=== PATIENT | female | born 1940 | race Caucasian/White ===

== ENCOUNTER → 2020-10-26 | Outpatient (CLI) | payer SELFPAY ==
[2020-10-26 19:38] LABS: Creatinine Urine 56.7 mg/dL (27.00-270.00); Protein, Urine Quantitative 7.1 mg/dL (0.0-11.9)
[2020-10-26 19:40] LABS: Microalbumin, Urine Quant. 40.5 mg/L (0.000-20.000)
== END | disposition home or self-care (01) ==
LOC: LAB 13:19 → LAB SHORT 13:19
PROVIDERS: Internal Medicine Nephrology
DX: N18.30 Chronic kidney disease, stage 3 unspecified (principal); D63.1 Anemia in chronic kidney disease; N25.81 Secondary hyperparathyroidism of renal origin; E55.9 Vitamin D deficiency, unspecified; E78.00 Pure hypercholesterolemia, unspecified; D50.9 Iron deficiency anemia, unspecified; D51.8 Other vitamin B12 deficiency anemias; D52.8 Other folate deficiency anemias; R76.9 Abnormal immunological finding in serum, unspecified; R94.5 Abnormal results of liver function studies; R94.6 Abnormal results of thyroid function studies
CPT/HCPCS: 81050; 82043; 82570; 84156

== ENCOUNTER 2021-04-30 13:21 | Inpatient (IN) | payer MEDICARE, OTHER ==
[~2021-04-30] VITALS: Ht 157.5 cm; Wt 63.4 kg
[2021-04-30] MEDS ORDERED: ATORVASTATIN CA20 MG PO (13:36)
[2021-04-30] MEDS ORDERED: Amoxicillin500 MG PO (13:36)
[2021-04-30] MEDS ORDERED: CALCITRIOL0.25 MC4 PO (13:36)
[2021-04-30] MEDS ORDERED: AMLODIPINE BESY10 MG PO (13:36)
[2021-04-30] MEDS ORDERED: TRAZ50 PO (13:37)
[2021-04-30 14:38] LABS: Hematocrit 31.9 % (33.0-51.0); Hemoglobin 10.6 g/dL (11.5-16.0); Mean Corpuscular HGB 31.3 pg (26.0-34.0); Mean Corpuscular HGB Conc 33.2 g/dL (31.5-36.5); Mean Corpuscular Volume 94 fL (80-100); Mean Platelet Volume 10.2 fL (9.1-12.4); Platelet Count 229 K/mm3 (150-400); RDW Standard Deviation 48.2 fL (35.1-46.3); Red Blood Cell Count 3.39 M/mm3 (3.80-5.20); White Blood Cell Count 14.27 K/mm3 (4.00-11.30)
[2021-04-30 14:59] LABS: BAND PERCENT MAN 15 % (0-8); BASOPHILS PERCENT MAN 0 % (0-2); EOSINOPHILS PERCENT MAN 0 % (0-6); LYMPHOCYTES % ATYPICAL MANUAL 1 % (0-0); LYMPHOCYTES ABSOLUTE MAN 0.71 K/mm3 (0.84-5.20); LYMPHOCYTES PERCENT MAN 4 % (21-46); MONOCYTES ABSOLUTE MAN 0.71 K/mm3 (0.16-1.47); MONOCYTES PERCENT MAN 5 % (4-13); NEUTROPHILS ABSOLUTE MAN 12.84 K/mm3 (1.96-9.15); SEG NEUTROPHILS PERCENT MAN 75 % (41-73); TOTAL CELLS COUNTED 100
[2021-04-30 15:00] LABS: Albumin, Blood 2.5 g/dL (3.4-5.0); Albumin/Globulin Ratio 0.8 (0.8-1.8); Bilirubin, Total 0.9 mg/dL (0.1-1.0); Bun/Creatinine Ratio 22.4 (12.0-20.0); Calcium, Blood 7.1 mg/dL (8.5-10.1); Creatinine, Blood 1.96 mg/dL (0.40-1.00); Total Protein, Blood 5.5 g/dL (6.4-8.2); Troponin I 0.025 ng/mL (0.000-0.040)
[2021-04-30 15:16] LABS: Influenza A, PCR NEGATIVE (NEGATIVE); Influenza B, PCR NEGATIVE (NEGATIVE); Resp Syncytial Virus, PCR NEGATIVE (NEGATIVE); SARS-Cov-2 (COVID-19) PCR, MMC NEGATIVE (NEGATIVE)
[2021-05-01 05:39] LABS: BASOPHILS ABSOLUTE AUTO 0.02 K/mm3 (0.00-0.23); BASOPHILS PERCENT AUTO 0 % (0-2); EOSINOPHILS PERCENT AUTO 0 % (0-6); Hematocrit 28.9 % (33.0-51.0); Hemoglobin 9.4 g/dL (11.5-16.0); IMMATURE GRAN ABSOLUTE AUTO 0.02 K/mm3 (0.00-0.10); IMMATURE GRAN PERCENT AUTO 0 % (0-1); LYMPHOCYTES ABSOLUTE AUTO 0.84 K/mm3 (0.84-5.20); LYMPHOCYTES PERCENT AUTO 9 % (21-46); MONOCYTES ABSOLUTE AUTO 0.68 K/mm3 (0.16-1.47); MONOCYTES PERCENT AUTO 7 % (4-13); Mean Corpuscular HGB 31.1 pg (26.0-34.0); Mean Corpuscular HGB Conc 32.5 g/dL (31.5-36.5); Mean Corpuscular Volume 96 fL (80-100); Mean Platelet Volume 10.3 fL (9.1-12.4); NEUTROPHILS ABSOLUTE AUTO 7.92 K/mm3 (1.96-9.15); NEUTROPHILS PERCENT AUTO 84 % (41-73); Platelet Count 200 K/mm3 (150-400); RDW Standard Deviation 49.5 fL (35.1-46.3); Red Blood Cell Count 3.02 M/mm3 (3.80-5.20); White Blood Cell Count 9.48 K/mm3 (4.00-11.30)
--- NOTE | 2021-05-01 06:11 | NUR ---
SHIFT SUMMARY: PT IS ALERT AND ORIENTED. PT IS CALM AND COOPERATIVE WITH CARE. PT CALLS APPROPRIATELY. PT ON 4 L O2 KEEPING SATS > 90%. PT REPORTS SOB ON EXERTION. PT REPORTS AWAD, GAVE PRN TYLENOL. PT DENIES N/V. PT RESTING IN BED THROUGHOUT THE NIGHT. WILL CONTINUE TO MONITOR.
[2021-05-01 06:24] LABS: Albumin, Blood 2.1 g/dL (3.4-5.0); Albumin/Globulin Ratio 0.7 (0.8-1.8); Bilirubin, Total 0.6 mg/dL (0.1-1.0); Bun/Creatinine Ratio 26.1 (12.0-20.0); Creatinine, Blood 1.76 mg/dL (0.40-1.00); Globulin, Blood 2.9 g/dL (2.2-4.0); Magnesium, Blood 2.6 mg/dL (1.6-2.4); Phosphorus, Blood 3.4 mg/dL (2.5-4.9); Potassium, Blood 3.7 mmol/L (3.5-5.5)
[2021-05-02 05:49] LABS: Albumin, Blood 2.1 g/dL (3.4-5.0); Anion Gap 12 mmol/L (6-16); Blood Urea Nitrogen 39 mg/dL (8-24); Bun/Creatinine Ratio 26.7 (12.0-20.0); CO2, Blood 19 mmol/L (21-32); Calcium, Blood 6.9 mg/dL (8.5-10.1); Chloride, Blood 110 mmol/L (98-108); Creatinine, Blood 1.46 mg/dL (0.40-1.00); Glomerular Filtration Rate 34 (60-); Glucose, Blood 88 mg/dL (70-99); Phosphorus, Blood 2.9 mg/dL (2.5-4.9); Potassium, Blood 3.6 mmol/L (3.5-5.5); Sodium, Blood 141 mmol/L (136-145)
--- NOTE | 2021-05-02 06:01 | NUR ---
SHIFT SUMMARY AOX4. ADMITTED FOR PNEUMONIA, RECIEVING IV ANTIBIOTICS. SPO2 DROPPED TO 76% ON 3L c AMBULATION THIS AM, INCREASED O2 TO 4L & SPO2 @90%, PT CAN TELL WHEN O2 DROPPING c ACTIVITY. REST OF VITALS STABLE. TELE NSR c PAC @78. CALL LIGHT IN REACH. WCTM.
[2021-05-02] MEDS ORDERED: METOPROLOL SUCC25 MG PO (17:22)
--- NOTE | 2021-05-02 18:17 | NUR ---
SHIFT SUMMARY PT A&O X4 AND IN PLEASENT MOOD T/O SHIFT. 4-5 L O2 VIA NC DEPENDING ON EXERTION, MAINTAINING >90 ON 4 L @ REST. PT SHOWERED SBA AND LINEN CHANGED. TOLERATING PO INTAKE WELL. SLIGHT CRACKLES R LUNG. STEADY GAIT W/ AMBULATION. WORKED W/ PT DURING THIS SHIFT. VSS.
--- NOTE | 2021-05-03 04:37 | NUR ---
SHIFT SUMMARY ADMITTED FOR PNEUMONIA/SEPSIS. FULL CODE. PLAN IS FOR DC HOME W/SPOUSE WHEN SHE IS STABLE. TELEMETRY: NSR W/PVC'S @ 86 BPM. SHE IS ON 5 LPM O2 WHEN SHE AMBULATES, 4 LPM O2 @ REST. IV ANTIB RX ARE SCHEDULED. THERE ARE CONCERNS THAT THE PNEUMONIA MAY BE CAUSED BY ASPIRATION. SHE IS A STANDBY ASSIST - BRP
[2021-05-03 06:40] LABS: Albumin, Blood 1.9 g/dL (3.4-5.0); Anion Gap 7 mmol/L (6-16); Blood Urea Nitrogen 28 mg/dL (8-24); Bun/Creatinine Ratio 18.5 (12.0-20.0); CO2, Blood 23 mmol/L (21-32); Chloride, Blood 112 mmol/L (98-108); Creatinine, Blood 1.51 mg/dL (0.40-1.00); Glomerular Filtration Rate 33 (60-); Glucose, Blood 95 mg/dL (70-99); Phosphorus, Blood 2.6 mg/dL (2.5-4.9); Potassium, Blood 3.6 mmol/L (3.5-5.5); Sodium, Blood 142 mmol/L (136-145)
--- NOTE | 2021-05-03 10:31 | NUR ---
PT PROVIDED WITH INCENTIVE SPIROMETER, EDUCATION PROVIDED. PT DEMONSTRATED CORRECT USE.
--- NOTE | 2021-05-03 16:56 | NUR ---
SHIFT SUMMARY NO ACUTE EVENTS THIS SHIFT. PT IS ALERT AND ORIENTED, ABLE TO CALL APPROPRIATELY. ON 4 L VIA NASAL CANNULA, HAS INTERMITTENT COUGH. PT PROVIDED WITH INCENTIVE SPIROMETER, EDUCATION PROVIDED, PT HAS BEEN USING THROUGHOUT SHIFT. AT START OF SHIFT PT STATED THAT SHE HAD PAIN WITH FULL INSPIRATION, BY END OF SHIFT PATIENT ENDORSED SATISFACTION THAT SHE WAS FEELING BETTER AND NO LONGER FELT PAINFUL WITH FULL INSPIRATION. PT WAS HYPERTENSIVE AT START OF SHIFT, GIVEN MEDICATIONS PER EMAR. PT WAS ABLE TO AMBULATE TO THE BATHROOM WITH SBA AND GAITBELT FOR SAFETY. PATIENT DID HAVE A TEMPERATURE, GIVEN TYLENOL PER EMAR, MD AWARE, IMPROVED THROUGH SHIFT. FLUIDS RUNNING PER EMAR.
--- NOTE | 2021-05-04 04:11 | NUR ---
SHIFT SUMMARY ADMITTED FOR PNEUMONIA/SEPSIS. FULL CODE. PLAN IS FOR DC HOME W/HER SPOUSE WHEN STABLE. TELEMETRY: NSR @ 75 BPM. LR INFUSING @ 75 ML/HR. IV ANTIB RX ARE SCHEDULED. SHE IS A STANDBY ASSIST - BRP. SHE IS ON 4 LPM O2 AT REST, 5 LPM O2 W/ACTIVITY. SHE IS A STANDBY ASSIST - BRP.
[2021-05-04 05:31] LABS: BASOPHILS ABSOLUTE AUTO 0.02 K/mm3 (0.00-0.23); BASOPHILS PERCENT AUTO 0 % (0-2); EOSINOPHILS ABSOLUTE AUTO 0.07 K/mm3 (0.00-0.68); EOSINOPHILS PERCENT AUTO 1 % (0-6); Hematocrit 29.6 % (33.0-51.0); Hemoglobin 9.4 g/dL (11.5-16.0); IMMATURE GRAN ABSOLUTE AUTO 0.11 K/mm3 (0.00-0.10); IMMATURE GRAN PERCENT AUTO 1 % (0-1); LYMPHOCYTES ABSOLUTE AUTO 1.19 K/mm3 (0.84-5.20); LYMPHOCYTES PERCENT AUTO 14 % (21-46); MONOCYTES ABSOLUTE AUTO 1.33 K/mm3 (0.16-1.47); MONOCYTES PERCENT AUTO 15 % (4-13); Mean Corpuscular HGB 30.5 pg (26.0-34.0); Mean Corpuscular HGB Conc 31.8 g/dL (31.5-36.5); Mean Corpuscular Volume 96 fL (80-100); Mean Platelet Volume 10.2 fL (9.1-12.4); NEUTROPHILS ABSOLUTE AUTO 5.91 K/mm3 (1.96-9.15); NEUTROPHILS PERCENT AUTO 69 % (41-73); Platelet Count 308 K/mm3 (150-400); RDW Coefficient Variation 14.5 % (11.7-14.2); RDW Standard Deviation 51.4 fL (35.1-46.3); Red Blood Cell Count 3.08 M/mm3 (3.80-5.20); White Blood Cell Count 8.63 K/mm3 (4.00-11.30)
[2021-05-04 06:04] LABS: Albumin, Blood 2.3 g/dL (3.4-5.0); Anion Gap 10 mmol/L (6-16); Blood Urea Nitrogen 23 mg/dL (8-24); Bun/Creatinine Ratio 17.2 (12.0-20.0); CO2, Blood 23 mmol/L (21-32); Calcium, Blood 7.4 mg/dL (8.5-10.1); Chloride, Blood 109 mmol/L (98-108); Creatinine, Blood 1.34 mg/dL (0.40-1.00); Glomerular Filtration Rate 38 (60-); Glucose, Blood 111 mg/dL (70-99); Phosphorus, Blood 2.5 mg/dL (2.5-4.9); Potassium, Blood 3.5 mmol/L (3.5-5.5); Sodium, Blood 142 mmol/L (136-145)
[2021-05-04 08:38] LABS: Influenza A, PCR NEGATIVE (NEGATIVE); Influenza B, PCR NEGATIVE (NEGATIVE); Resp Syncytial Virus, PCR NEGATIVE (NEGATIVE); SARS-Cov-2 (COVID-19) PCR, MMC NEGATIVE (NEGATIVE)
--- NOTE | 2021-05-04 17:12 | NUR ---
PT AOX4 AND COOPERATIVE OF CARE. PT HAD RT RAISE O2 FROM 5L TO 7L AT START OF SHIFT. DR WALDRON WAS NOTIFIED AND CHEST XRAY ORDERED. COVID TEST AND PT WILL HAVE REPEAT 05/05/21. PT WORKED WELL WITH PT AND IS A STANDBY TO RESTROOM NEEDING HELP WITH IV PUMP.
[2021-05-04 21:16] LABS: Source, Urine Clean Catch
[2021-05-04 21:21] LABS: Appearance, Urine Clear (Clear); Bilirubin, Urine Neg (Neg); Blood, Urine Neg (Neg); Color, Urine Yellow (P-Yellow); Glucose Qualitative, Urine Neg (Neg); Ketones, Urine Neg (Neg); Leukocyte Esterase, Urine Neg (Neg); Nitrite, Urine Neg (Neg); Protein, Urine 1+ (Neg); Specific Gravity, Urine 1.015 (1.003-1.022); Urobilinogen, Urine NORM (Normal)
--- NOTE | 2021-05-05 05:40 | NUR ---
SHIFT SUMMARY 80 YR F ADMITTED ON 04/30/21 FOR PNEUMONIA. FULL CODE. SHE IS CURRENTLY ON 8 L O2 WITH SATS AVERAGING AROUND 90. LUNGS ARE CRACKLY AND SHE HAS A WET COUGH. BILATER LOWER EXTREMITIY EDEMA. IV WAS REDONE AND IS STILL IN LEFT FOREARM. PT IS FRIENDLY AND COOPERATIVE. AMBULATES INDEPENDANTLY. WILL DISCHARGE HOME WITH HER .
[2021-05-05 06:01] LABS: BASOPHILS ABSOLUTE AUTO 0.03 K/mm3 (0.00-0.23); BASOPHILS PERCENT AUTO 0 % (0-2); EOSINOPHILS ABSOLUTE AUTO 0.14 K/mm3 (0.00-0.68); EOSINOPHILS PERCENT AUTO 2 % (0-6); Hematocrit 25.9 % (33.0-51.0); Hemoglobin 8.2 g/dL (11.5-16.0); IMMATURE GRAN ABSOLUTE AUTO 0.13 K/mm3 (0.00-0.10); IMMATURE GRAN PERCENT AUTO 1 % (0-1); LYMPHOCYTES PERCENT AUTO 17 % (21-46); MONOCYTES ABSOLUTE AUTO 1.25 K/mm3 (0.16-1.47); MONOCYTES PERCENT AUTO 13 % (4-13); Mean Corpuscular HGB 30.1 pg (26.0-34.0); Mean Corpuscular HGB Conc 31.7 g/dL (31.5-36.5); Mean Corpuscular Volume 95 fL (80-100); Mean Platelet Volume 10.3 fL (9.1-12.4); NEUTROPHILS ABSOLUTE AUTO 6.18 K/mm3 (1.96-9.15); NEUTROPHILS PERCENT AUTO 66 % (41-73); Platelet Count 375 K/mm3 (150-400); RDW Coefficient Variation 14.6 % (11.7-14.2); RDW Standard Deviation 51.3 fL (35.1-46.3); Red Blood Cell Count 2.72 M/mm3 (3.80-5.20); White Blood Cell Count 9.33 K/mm3 (4.00-11.30)
[2021-05-05 06:14] LABS: Albumin, Blood 2.2 g/dL (3.4-5.0); Anion Gap 9 mmol/L (6-16); Blood Urea Nitrogen 20 mg/dL (8-24); Bun/Creatinine Ratio 15.4 (12.0-20.0); CO2, Blood 23 mmol/L (21-32); Calcium, Blood 7.4 mg/dL (8.5-10.1); Chloride, Blood 110 mmol/L (98-108); Glomerular Filtration Rate 39 (60-); Glucose, Blood 92 mg/dL (70-99); Phosphorus, Blood 2.6 mg/dL (2.5-4.9); Potassium, Blood 3.9 mmol/L (3.5-5.5); Sodium, Blood 142 mmol/L (136-145)
[2021-05-05 08:51] LABS: Influenza A, PCR NEGATIVE (NEGATIVE); Influenza B, PCR NEGATIVE (NEGATIVE); Resp Syncytial Virus, PCR NEGATIVE (NEGATIVE); SARS-Cov-2 (COVID-19) PCR, MMC NEGATIVE (NEGATIVE)
--- NOTE | 2021-05-05 17:23 | NUR ---
SHIFT SUMMARY PATIENT MEDICATED X1 WITH TYLENOL FOR HEADACHE. PATIENT DENIES NAUSEA. PATIENT REPORTS SOB WITH ACTIVITY. PATIENT DID REPORT SOB AT REST THIS MORNING. RT GAVE BREATHING TREATMENT WITH GOOD EFFECT. PATIENT TITRATED TO 6L VIA HIGH FLOW. PATIENT MAINTAINING SATS ABOVE 93%. PATIENT IS A SBA IN THE ROOM. PATIENT ABLE TO TOLERATE TAKING A SHOWER TODAY. PATIENT IS EATING AND DRINKING WELL. PATIENT IS PLEASANT AND COOPERATIVE WITH CARE.
[2021-05-06 05:02] LABS: BASOPHILS ABSOLUTE AUTO 0.01 K/mm3 (0.00-0.23); BASOPHILS PERCENT AUTO 0 % (0-2); EOSINOPHILS ABSOLUTE AUTO 0.24 K/mm3 (0.00-0.68); EOSINOPHILS PERCENT AUTO 3 % (0-6); Hematocrit 28.3 % (33.0-51.0); Hemoglobin 8.8 g/dL (11.5-16.0); IMMATURE GRAN ABSOLUTE AUTO 0.07 K/mm3 (0.00-0.10); IMMATURE GRAN PERCENT AUTO 1 % (0-1); LYMPHOCYTES ABSOLUTE AUTO 1.53 K/mm3 (0.84-5.20); LYMPHOCYTES PERCENT AUTO 21 % (21-46); MONOCYTES ABSOLUTE AUTO 0.89 K/mm3 (0.16-1.47); MONOCYTES PERCENT AUTO 12 % (4-13); Mean Corpuscular HGB Conc 31.1 g/dL (31.5-36.5); Mean Corpuscular Volume 97 fL (80-100); Mean Platelet Volume 10.1 fL (9.1-12.4); NEUTROPHILS ABSOLUTE AUTO 4.63 K/mm3 (1.96-9.15); NEUTROPHILS PERCENT AUTO 63 % (41-73); Platelet Count 383 K/mm3 (150-400); RDW Coefficient Variation 14.7 % (11.7-14.2); RDW Standard Deviation 52.2 fL (35.1-46.3); Red Blood Cell Count 2.93 M/mm3 (3.80-5.20); White Blood Cell Count 7.37 K/mm3 (4.00-11.30)
--- NOTE | 2021-05-06 05:16 | NUR ---
SHIFT SUMMARY 80 YR F ADMITTED ON 04/30/21 FOR PNEUMONIA. FULL CODE. PT HAD TITRATED DOWN FROM 8 TO 6 L O2 IN THE LAST 24 HOURS. RT HAS GIVEN SEVERAL BREATHING TX WHICH SEEMED TO HAVE HELPED A LOT/ CURRENT SATS ARE IN THE MID 90'S. PT IS INDEPENDANT IN THE ROOM AND AMBULATES TO THE BATHROOM WITH NO ASSISTANCE. DISCHARGE PLANS ARE TO GO HOME WITH HER .
[2021-05-06 06:06] LABS: Albumin, Blood 2.1 g/dL (3.4-5.0); Anion Gap 6 mmol/L (6-16); Blood Urea Nitrogen 21 mg/dL (8-24); Bun/Creatinine Ratio 16.7 (12.0-20.0); CO2, Blood 25 mmol/L (21-32); Calcium, Blood 7.7 mg/dL (8.5-10.1); Chloride, Blood 111 mmol/L (98-108); Creatinine, Blood 1.26 mg/dL (0.40-1.00); Glomerular Filtration Rate 41 (60-); Glucose, Blood 111 mg/dL (70-99); Phosphorus, Blood 3.2 mg/dL (2.5-4.9); Potassium, Blood 4.1 mmol/L (3.5-5.5); Sodium, Blood 142 mmol/L (136-145)
--- NOTE | 2021-05-06 16:26 | NUR ---
SHIFT SUMMARY PATIENT MEDICATED X1 WITH TYLENOL, WITH GOOD EFFECT, FOR NECK PAIN. PATIENT DENIES NAUSEA. PATIENT REPORTS SHORTNESS OF BREATH WITH ACTIVITY. PATIENT ON 6L HIGH FLOW. PATIENT SATURATING ABOVE 90%. ATTEMPTED TO TITRATE TO 5L, BUT PATIENT DID NOT SUSTAIN SATS ABOVE 90%. PATIENT IS A SBA TO THE BATHROOM. PATIENT IS EATING AND DRINKING WELL. PATIENT IS PLEASANT AND COOPERAATIVE WITH CARE.
--- NOTE | 2021-05-07 04:29 | NUR ---
SHIFT SUMMARY PT CONTINUES TO HAVE SHORTNESS OF BREATH WITH EXERTION. PT REPORTS FEELING LIKE THIS IS SLIGHTLY WORSE THIS EVENING. PT REMAINS ON 6 L VIA HFNC. O2 SATS IN THE LOW TO MID 90'S. DESATS TO THE LOW TO MID 80'S WITH EXERTION. RECOVERS WELL WITH REST. PT REPORTS NAGGING NONPRODUCTIVE COUGH. NEW ORDERS FOR ROBITUSSIN THIS EVENING. PT ALSO COMPLAINING OF PAIN IN NECK/R SHOULDER. TYLENOL GIVEN AND HEATING PAD PROVIDED. PT REPORTED IMPROVEMENT. SLEPT OFF AND ON WHEN NOT GETTING UP TO VOID. VITAL SIGNS STABLE. WILL CONTINUE TO MONITOR.
[2021-05-07 07:52] LABS: BASOPHILS ABSOLUTE AUTO 0.02 K/mm3 (0.00-0.23); BASOPHILS PERCENT AUTO 0 % (0-2); EOSINOPHILS ABSOLUTE AUTO 0.16 K/mm3 (0.00-0.68); EOSINOPHILS PERCENT AUTO 3 % (0-6); Hematocrit 28.1 % (33.0-51.0); Hemoglobin 8.9 g/dL (11.5-16.0); IMMATURE GRAN ABSOLUTE AUTO 0.05 K/mm3 (0.00-0.10); IMMATURE GRAN PERCENT AUTO 1 % (0-1); LYMPHOCYTES ABSOLUTE AUTO 1.33 K/mm3 (0.84-5.20); LYMPHOCYTES PERCENT AUTO 20 % (21-46); MONOCYTES ABSOLUTE AUTO 0.75 K/mm3 (0.16-1.47); MONOCYTES PERCENT AUTO 12 % (4-13); Mean Corpuscular HGB 30.7 pg (26.0-34.0); Mean Corpuscular HGB Conc 31.7 g/dL (31.5-36.5); Mean Corpuscular Volume 97 fL (80-100); Mean Platelet Volume 10.1 fL (9.1-12.4); NEUTROPHILS ABSOLUTE AUTO 4.22 K/mm3 (1.96-9.15); NEUTROPHILS PERCENT AUTO 65 % (41-73); Platelet Count 392 K/mm3 (150-400); RDW Coefficient Variation 14.8 % (11.7-14.2); RDW Standard Deviation 52.6 fL (35.1-46.3); White Blood Cell Count 6.53 K/mm3 (4.00-11.30)
[2021-05-07 08:12] LABS: Albumin, Blood 2.2 g/dL (3.4-5.0); Anion Gap 7 mmol/L (6-16); Blood Urea Nitrogen 17 mg/dL (8-24); Bun/Creatinine Ratio 14.8 (12.0-20.0); CO2, Blood 24 mmol/L (21-32); Calcium, Blood 7.4 mg/dL (8.5-10.1); Chloride, Blood 111 mmol/L (98-108); Creatinine, Blood 1.15 mg/dL (0.40-1.00); Glomerular Filtration Rate 45 (60-); Glucose, Blood 92 mg/dL (70-99); Phosphorus, Blood 2.9 mg/dL (2.5-4.9); Potassium, Blood 4.3 mmol/L (3.5-5.5); Sodium, Blood 142 mmol/L (136-145)
--- NOTE | 2021-05-07 18:06 | NUR ---
PT REMAINS ON 6L HFNC, SATS STILL IN LOW TO MID 90'S, DESATTING INTO THE 80'S WITH EXERTION, RECOVERS WELL. USING IS T/O THE SHIFT, NO ACUTE CHANGES NOTED THIS SHIFT, WILL CONTINUE TO MONITOR AND REPORT TO ONCOMING RN
--- NOTE | 2021-05-08 03:34 | NUR ---
SHIFT SUMMARY PT AOX4. NO ACUTE CHANGES OVERNIGHT. PT ON 6L HFNC. SATURATING ON 90-94% AT REST. DESATS WHEN AMBULATING TO 79% BUT DOES NOT APPEAR TO BE DISTRESSED. ENC PT DO DEEP BREATHS AND USE FLUTTER VALVE AND I/S. PT ALSO REPORTS R SIDE NECK AND R SHOUDLER PAIN. PAIN MANAGED WITH KPAD AND TYLENOL. TOLERATING PO INTAKE. DENIES N/V. VSS. USE CALL LIGHT APPROPRIATELY. IV ABX ADMINISTERED. BREATHING TX RECIEVED FROM RT. CALL LIGHT WITHIN REACH. WILL PROVIDE REPORT TO ONCOMING NURSE.
[2021-05-08 05:32] LABS: BASOPHILS ABSOLUTE AUTO 0.02 K/mm3 (0.00-0.23); BASOPHILS PERCENT AUTO 0 % (0-2); EOSINOPHILS ABSOLUTE AUTO 0.08 K/mm3 (0.00-0.68); EOSINOPHILS PERCENT AUTO 1 % (0-6); Hematocrit 27.2 % (33.0-51.0); Hemoglobin 8.4 g/dL (11.5-16.0); IMMATURE GRAN ABSOLUTE AUTO 0.04 K/mm3 (0.00-0.10); IMMATURE GRAN PERCENT AUTO 1 % (0-1); LYMPHOCYTES ABSOLUTE AUTO 0.88 K/mm3 (0.84-5.20); LYMPHOCYTES PERCENT AUTO 15 % (21-46); MONOCYTES ABSOLUTE AUTO 0.65 K/mm3 (0.16-1.47); MONOCYTES PERCENT AUTO 11 % (4-13); Mean Corpuscular HGB 30.1 pg (26.0-34.0); Mean Corpuscular HGB Conc 30.9 g/dL (31.5-36.5); Mean Corpuscular Volume 98 fL (80-100); NEUTROPHILS ABSOLUTE AUTO 4.17 K/mm3 (1.96-9.15); NEUTROPHILS PERCENT AUTO 71 % (41-73); Platelet Count 428 K/mm3 (150-400); RDW Coefficient Variation 14.9 % (11.7-14.2); RDW Standard Deviation 53.7 fL (35.1-46.3); Red Blood Cell Count 2.79 M/mm3 (3.80-5.20); White Blood Cell Count 5.84 K/mm3 (4.00-11.30)
[2021-05-08 05:56] LABS: Albumin, Blood 1.9 g/dL (3.4-5.0); Anion Gap 8 mmol/L (6-16); Blood Urea Nitrogen 17 mg/dL (8-24); Bun/Creatinine Ratio 12.5 (12.0-20.0); CO2, Blood 25 mmol/L (21-32); Calcium, Blood 7.5 mg/dL (8.5-10.1); Chloride, Blood 110 mmol/L (98-108); Creatinine, Blood 1.36 mg/dL (0.40-1.00); Glomerular Filtration Rate 37 (60-); Glucose, Blood 91 mg/dL (70-99); Phosphorus, Blood 3.3 mg/dL (2.5-4.9); Potassium, Blood 4.8 mmol/L (3.5-5.5); Sodium, Blood 143 mmol/L (136-145)
--- NOTE | 2021-05-08 18:21 | NUR ---
MAINTAINING SATS IN THE 90'S ON 6L HFNC AT REST, WILL DESAT INTO THE 80'S WITH EXERTION, RECOVERS WELL. NO VISIBLE SIGNS OF RESP DISTRESS. PT SAYS SHE IS FEELING BETTER TODAY AND IS HOPING TO GO HOME SOON. NO ACUTE CHANGES NOTED THIS SHIFT, WILL CONTINUE TO MONITOR AND REPORT TO THE ONCOMING RN.
[2021-05-09 04:47] LABS: BASOPHILS ABSOLUTE AUTO 0.03 K/mm3 (0.00-0.23); BASOPHILS PERCENT AUTO 1 % (0-2); EOSINOPHILS ABSOLUTE AUTO 0.07 K/mm3 (0.00-0.68); EOSINOPHILS PERCENT AUTO 1 % (0-6); Hematocrit 31.5 % (33.0-51.0); Hemoglobin 9.9 g/dL (11.5-16.0); IMMATURE GRAN ABSOLUTE AUTO 0.07 K/mm3 (0.00-0.10); IMMATURE GRAN PERCENT AUTO 1 % (0-1); LYMPHOCYTES ABSOLUTE AUTO 0.89 K/mm3 (0.84-5.20); LYMPHOCYTES PERCENT AUTO 14 % (21-46); MONOCYTES ABSOLUTE AUTO 1.19 K/mm3 (0.16-1.47); MONOCYTES PERCENT AUTO 19 % (4-13); Mean Corpuscular HGB 30.2 pg (26.0-34.0); Mean Corpuscular HGB Conc 31.4 g/dL (31.5-36.5); Mean Corpuscular Volume 96 fL (80-100); Mean Platelet Volume 9.8 fL (9.1-12.4); NEUTROPHILS ABSOLUTE AUTO 4.18 K/mm3 (1.96-9.15); NEUTROPHILS PERCENT AUTO 65 % (41-73); Platelet Count 549 K/mm3 (150-400); RDW Coefficient Variation 14.9 % (11.7-14.2); RDW Standard Deviation 52.4 fL (35.1-46.3); Red Blood Cell Count 3.28 M/mm3 (3.80-5.20); White Blood Cell Count 6.43 K/mm3 (4.00-11.30)
[2021-05-09 05:24] LABS: Albumin, Blood 2.6 g/dL (3.4-5.0); Anion Gap 7 mmol/L (6-16); Blood Urea Nitrogen 18 mg/dL (8-24); Bun/Creatinine Ratio 14.5 (12.0-20.0); CO2, Blood 25 mmol/L (21-32); Calcium, Blood 8.3 mg/dL (8.5-10.1); Chloride, Blood 108 mmol/L (98-108); Creatinine, Blood 1.24 mg/dL (0.40-1.00); Glomerular Filtration Rate 41 (60-); Glucose, Blood 101 mg/dL (70-99); Phosphorus, Blood 3.3 mg/dL (2.5-4.9); Potassium, Blood 4.4 mmol/L (3.5-5.5); Sodium, Blood 140 mmol/L (136-145)
--- NOTE | 2021-05-09 06:20 | NUR ---
SHIFT SUMMARY NO ACUTE CHANGES TO PT STATUS. PT ON CONTINUOUS BIOX IN ROOM. 6L O2. DESATS WHEN SHE GETS UP TO USE RESTROOM. INDEPENDENT IN THE ROOM. PT MEDICATED FOR R SHOULDER PAIN TWICE PER EMAR. CALL LIGHT WITHIN REACH.
--- NOTE | 2021-05-09 18:05 | NUR ---
SHIFT SUMMARY PT HAD EPISODE OF LOW O2 SATS AT FIRST OF SHIFT WITH O2 INCREEASED TO 8L/M FOR A COUPLE HOURS. DROPPED BACK TO 6L/M BY HIGH FLOW O2 APPROX 1015. SHOWER TAKEN, P.T. WORKED WITH PT AND SATS REMAINED ABOVE 90% THROUGH REMAINDER OF DDAY WITH SHORT DROPS WITH ACTIVITY OR MISREADS. DENIES RESP DISTRESS THROUGH DAY AND REPORTS FEELING PRETTY GOOD.
--- NOTE | 2021-05-10 03:51 | NUR ---
SHIFT SUMMARY NO ACUTE CHANGES TO PT CONDITION AT THIS TIME. PT CONTINUES ON 6 L HIGH FLOW NC. SATS ARE IN MID 90'S. PT CONTINUES TO DESATURATE WHEN GETTING UP TO THE BATHROOM. PT INDEPENDENT IN ROOM. CALL LIGHT WITHIN REACH. WILL CONTINUE TO MONITOR.
--- NOTE | 2021-05-10 18:00 | NUR ---
Patient was alert and orient. Her affect was pleasant and mood was congruent. She worked with PT earlier in the day and her 02 sats remained at 95% at 6LPM. Her 0xygen was reduced to 3LPM and eventually increased back to 4LPM this evening. She walked around the room and went to bathroom as needed. Her oxygen did not desaturate at that time. Patient sat in the chair for at minimum 2 hours. She had a dry cough and did recv prn Robitussin this shift. No complaints of pain, no request for pain meds. Patient is back in bed and appeared to be in no distress.
--- NOTE | 2021-05-11 05:13 | NUR ---
SHIFT SUMMARY NO ACUTE CHANGES TO PT CONDITION AT THIS TIME. PT NOW ON 4L O2 WITH OXYGEN SATS IN THE LOWER 90'S. PT CONTINUES TO DESAT TO LOW 80'S UPON EXERTION. INDEPENDENT IN ROOM. CONTINUES ON ANTIBIOTICS. CALL LIGHT WITHIN REACH. WILL CONTINUE TO MONITOR. PT ON CONTINUOUS BIOX IN HER ROOM.
--- NOTE | 2021-05-11 17:46 | NUR ---
Patient was alert and orient, her affect was pleasant and mood was congruent. Patient continued to express that she wanted to go home. The provider stated that this patient needed 3 more days of IV ABX BID but will try follow up on getting her to infusion clinic so that she could go home. Patient also had 02 home evaluation and looks as if she will be going home with 6L of 02. Patient was cooperative with her meds and tx plan. No complaints of pain.
--- NOTE | 2021-05-12 06:16 | NUR ---
SHIFT SUMMARY: PATIENT IS A&OX4, LOW GRADE TEMP. OBSERVED @ 100.1. TYLENOL WAS GIVEN, RECHECK WAS 100.0. PATIENT WAS ON 4L NC AT START OF SHIFT WITH A SAT OF 92%. WHILE SLEEPING PATIENT DESATED DOWN TO 86% ON 4L. 02 INCREASED TO 6L NC, SAT 90-91%. UP TO THE BATHROOM WITH SBA AND A STAEDY GAIT.
[2021-05-12 08:53] LABS: BASOPHILS ABSOLUTE AUTO 0.01 K/mm3 (0.00-0.23); BASOPHILS PERCENT AUTO 0 % (0-2); EOSINOPHILS ABSOLUTE AUTO 0.01 K/mm3 (0.00-0.68); EOSINOPHILS PERCENT AUTO 0 % (0-6); Hematocrit 30.6 % (33.0-51.0); Hemoglobin 9.4 g/dL (11.5-16.0); IMMATURE GRAN ABSOLUTE AUTO 0.02 K/mm3 (0.00-0.10); IMMATURE GRAN PERCENT AUTO 1 % (0-1); LYMPHOCYTES ABSOLUTE AUTO 1.38 K/mm3 (0.84-5.20); LYMPHOCYTES PERCENT AUTO 37 % (21-46); MONOCYTES ABSOLUTE AUTO 0.74 K/mm3 (0.16-1.47); MONOCYTES PERCENT AUTO 20 % (4-13); Mean Corpuscular HGB 29.1 pg (26.0-34.0); Mean Corpuscular HGB Conc 30.7 g/dL (31.5-36.5); Mean Corpuscular Volume 95 fL (80-100); Mean Platelet Volume 9.6 fL (9.1-12.4); NEUTROPHILS ABSOLUTE AUTO 1.61 K/mm3 (1.96-9.15); NEUTROPHILS PERCENT AUTO 43 % (41-73); Platelet Count 599 K/mm3 (150-400); RDW Coefficient Variation 14.7 % (11.7-14.2); Red Blood Cell Count 3.23 M/mm3 (3.80-5.20); White Blood Cell Count 3.77 K/mm3 (4.00-11.30)
--- NOTE | 2021-05-12 15:42 | NUR ---
SHIFT SUMMARY PT SLEEPING AT START OF SHIFT. RT IN TO GIVE ROUTINE AM TX. PT'S O2 RATE INCREASED TO 5L BY RT. PT'S BIOX AFTER TX 94-95%, DR GAN LATER IN TO SEE PT. O2 DECREASED BACK TO 3L WITH BIOX 91-92%. PT ENCOURAGED TO USE INS AND FLUTTER VALVE, Q1 HR; REQUIRES OCCASSIONAL REMINDERS TO USE AT ALL. PT ASSISTED UP TO BTHRM WITH SBA AND RETURNED TO SIT IN CHAIR AT BS FOR BREAKFAST. PT LATER BACK TO BED. PT TO D/C TO HOME ON FRIDAY AFTER A COUPLE MORE DAYS OF IV ABX. NO C/O, DENIED FURTHER NEEDS AT THIS TIME. CALL LT IN REACH.
--- NOTE | 2021-05-13 04:16 | NUR ---
SHIFT SUMMARY: PATIENT STARTED THE SHIFT ON 3L HIGH FLOW NC. BY 1999 PATIENT WAS PLACED ON 15L VIA OXIMIZER. PATIENT DID NOT FEEL SOB AT ANY TIME. MULTIPLE 02 DELIVERY EQUIPMENT CHANGES THROUGH THE SHIFT. NEEDING A NON REBREATHER AT ONE POINT TO MAINTAIN SATS ABOVE 90% DR HERNANDEZ WAS NOTIFIED OF RESPIRATORY STATUS CHANGES AND CXR IS ORDERED FOR THE AM. PATIENT IS NOW ON 11L VIA HIGH FLOW TUBBING, 02 SAT IS 94%. PATIENT REPORTS LEFT HEARING AIDE IS MISSING. BLAST SETTER IS UNABLE TO LOCATE. ASSEMBLY LINE BRAZER AND AIDE WERE ALSO MADE AWARE
--- NOTE | 2021-05-13 16:09 | NUR ---
SHIFT SUMMARY PER NOC SHIFT REPORT, PT'S O2 INCREASED TO 11L VIA HIGH FLOW O2 DURING THE NIGHT. TRAVELING R/T HAD EQUIPMENT PROBLEMS. PT'S O2 DECREASED TO 6L AT START OF DAY SHIFT THIS AM, WITH PT GOING DOWN FOR F/U CXR. UPON RETURN TO , O2 DECREASED TO 4L. PT HAS CONTINUED TO REMAIN WNL'S ALL DAY, WITH BIOX AT 92%. NO C/O SOB. NO S/SX OF DISTRESS NOTED OR REPORTED. PT HAS BEEN ENCOURAGED TO USE INS AND FLUTTER VALVE THRU OUT THE DAY. PT DOES NOT USE ON HER OWN, BUT WILL USE THEM WHEN REMINED TO DO SO. UP TO CHAIR FOR MEALS, OTHERWISE LIKES TO STAY IN BED AND SLEEP. OTHER HEARING AID FOUND IN BED WITH PT, WHEN GETTING UP TO W/C FOR REPLENISHMENT BUYER. PT DENIES FURTHER NEEDS AT THIS TIME. CALL LT IN REACH.
--- NOTE | 2021-05-14 05:24 | NUR ---
SHIFT SUMMARY: RESPIRATORY STATUS IS IMPROVED. PATIENT IS NOW ON 4L NC HIGH FLOW 02 MAINTAINING SATS BETWEEN 88-91%. LOOSE PRODUCTIVE COUGH. SPUTUM IS CLEAR AND THIN. USING IS AND FLUTTER WITH ENCOURAGEMENT. DESATURATION IS OBSERVED WITH ACTIVITY, 02 IS INCREASED TO 5L WHEN AMBULATING. LOW GRADE TEMPS ARE OBSERVED, PATIENT ENJOYS WARM BLANKETS AND THIS COULD VERY WELL BE ENVIRONMENTALLY INDUCED. RPORTED RIGHT HIP PAIN, TYLENOL WAS EFFECTIVE FOR PAIN CONTROL.
[2021-05-14] MEDS ORDERED: Q-Tussin100 MG/5 M PO (16:30)
[2021-05-14] MEDS ORDERED: IPRAT-ALBUT 0.5-3 ML INH (16:31)
[2021-05-14] MEDS ORDERED: VISBIOME 112.51 EACH PO (16:32)
[2021-05-14] MEDS ORDERED: LEVOFLOXACIN750 MG PO (16:32)
--- NOTE | 2021-05-14 17:36 | NUR ---
DISCHARGE SUMMARY A/OX4, VSS, TOLERATING PO, AMBULATING c MINIMAL ASSISTANCE, 6L O2 VIA NC, DISCUSSED DISCHARGE INSTRUCTIONS WITH THE PT INCLUDING MEDICATIONS AND FOLLOW UP APPOINTMENTS AND CONTACT INFORMATION, DISCUSSED O2 USE AT HOME, PT HAD NO QUESTIONS, NO IV ACCESS IN PLACE, PT ESCORTED OUT WITH ALL PERSONAL POSSESSIONS IN STABLE CONDITION.
== END 2021-05-14 17:33 | disposition home health service (06) | DRG 871 ==
LOC: ER 13:21 → ERHOLD 16:45 → MEDS 16:45
PROVIDERS: Family Medicine; Student in an Organized Health Care Education/Training Program; ADMIT Internal Medicine
PROC: 5A0935A Assistance with Respiratory Ventilation, Less than 24 Consecutive Hours, High Flow/Velocity Cannula (ICD-10-PCS; principal; 2021-05-11)
DX: A40.3 Sepsis due to Streptococcus pneumoniae (principal); J96.01 Acute respiratory failure with hypoxia; R65.20 Severe sepsis without septic shock; J13 Pneumonia due to Streptococcus pneumoniae; N17.9 Acute kidney failure, unspecified; I31.3 Pericardial effusion (noninflammatory); J91.8 Pleural effusion in other conditions classified elsewhere; E78.5 Hyperlipidemia, unspecified; M81.0 Age-related osteoporosis without current pathological fracture; I12.9 Hypertensive chronic kidney disease with stage 1 through stage 4 chronic kidney disease, or unspecified chronic kidney disease; Z88.1 Allergy status to other antibiotic agents; N18.9 Chronic kidney disease, unspecified; G47.00 Insomnia, unspecified; N18.32 Chronic kidney disease, stage 3b; Z20.822 Contact with and (suspected) exposure to COVID-19; Z53.29 Procedure and treatment not carried out because of patient's decision for other reasons
CPT/HCPCS: 0241U; 36415; 71045; 71046; 80053; 80069; 83605; 83735; 83880; 84100; 84484; 85025; 87040; 87186; 92610; 93005; 93010; 93306; 94640; 94760; 94761; 94762; 96365; 96367; 97110; 97116; 97162; 97165; 97530; 97535; 99285-25; A9270; C9113; J0295; J0456; J1644; J7050; J7120

== ENCOUNTER → 2021-04-30 | Outpatient (CLI) | payer MEDICARE, OTHER ==
[~2021-04-30] MED LIST: AMLODIPINE BESY10 MG PO; ATORVASTATIN CA20 MG PO; Amoxicillin500 MG PO; CALCITRIOL0.25 MC4 PO; METOPROLOL SUCC25 MG PO; TRAZ50 PO
== END | disposition home or self-care (01) ==
LOC: LAB SHORT 12:59
DX: G47.34 Idiopathic sleep related nonobstructive alveolar hypoventilation (principal)
CPT/HCPCS: 84484

== ENCOUNTER 2021-05-16 17:27 | Inpatient (IN) | payer MEDICARE, OTHER ==
[~2021-05-16] VITALS: Ht 157.5 cm; Wt 63.1 kg
[~2021-05-16 17:27] MED LIST changes: +IPRAT-ALBUT 0.5-3 ML INH; +LEVOFLOXACIN750 MG PO; +Q-Tussin100 MG/5 M PO; +VISBIOME 112.51 EACH PO
[2021-05-16 18:02] LABS: BASOPHILS ABSOLUTE AUTO 0.02 K/mm3 (0.00-0.23); BASOPHILS PERCENT AUTO 0 % (0-2); EOSINOPHILS PERCENT AUTO 0 % (0-6); Hematocrit 28.2 % (33.0-51.0); Hemoglobin 9.1 g/dL (11.5-16.0); IMMATURE GRAN ABSOLUTE AUTO 0.08 K/mm3 (0.00-0.10); IMMATURE GRAN PERCENT AUTO 2 % (0-1); LYMPHOCYTES ABSOLUTE AUTO 1.06 K/mm3 (0.84-5.20); LYMPHOCYTES PERCENT AUTO 21 % (21-46); MONOCYTES ABSOLUTE AUTO 0.85 K/mm3 (0.16-1.47); MONOCYTES PERCENT AUTO 17 % (4-13); Mean Corpuscular HGB 29.4 pg (26.0-34.0); Mean Corpuscular HGB Conc 32.3 g/dL (31.5-36.5); Mean Corpuscular Volume 91 fL (80-100); Mean Platelet Volume 9.6 fL (9.1-12.4); NEUTROPHILS ABSOLUTE AUTO 3.13 K/mm3 (1.96-9.15); NEUTROPHILS PERCENT AUTO 61 % (41-73); Platelet Count 573 K/mm3 (150-400); RDW Coefficient Variation 14.8 % (11.7-14.2); RDW Standard Deviation 49.8 fL (35.1-46.3); Red Blood Cell Count 3.09 M/mm3 (3.80-5.20); White Blood Cell Count 5.14 K/mm3 (4.00-11.30)
[2021-05-16 18:20] LABS: Albumin, Blood 2.3 g/dL (3.4-5.0); Albumin/Globulin Ratio 0.6 (0.8-1.8); Bilirubin, Total 0.3 mg/dL (0.1-1.0); Bun/Creatinine Ratio 11.4 (12.0-20.0); Calcium, Blood 7.9 mg/dL (8.5-10.1); Creatinine, Blood 1.67 mg/dL (0.40-1.00); Globulin, Blood 3.8 g/dL (2.2-4.0); Potassium, Blood 3.9 mmol/L (3.5-5.5); Total Protein, Blood 6.1 g/dL (6.4-8.2); Troponin I 0.028 ng/mL (0.000-0.040)
[2021-05-16 19:02] LABS: Base Excess Venous 0.3 mmol/L; Bicarbonate Venous 24.6 mmol/L (24.0-30.0); PCO2 Venous 42.6 mmHg (38-42); pH Blood Venous 7.38 (7.34-7.37)
[2021-05-16 19:57] LABS: Influenza A, PCR NEGATIVE (NEGATIVE); Influenza B, PCR NEGATIVE (NEGATIVE); Resp Syncytial Virus, PCR NEGATIVE (NEGATIVE)
[2021-05-16 19:58] LABS: SARS-Cov-2 (COVID-19) PCR, MMC POSITIVE (NEGATIVE)
[2021-05-16 21:01] LABS: C-REACTIVE PROTEIN, EXT RANGE 8.83 mg/dL (0.000-0.300)
[2021-05-17 03:50] LABS: BASOPHILS ABSOLUTE AUTO 0.01 K/mm3 (0.00-0.23); BASOPHILS PERCENT AUTO 0 % (0-2); EOSINOPHILS PERCENT AUTO 0 % (0-6); Hemoglobin 8.9 g/dL (11.5-16.0); IMMATURE GRAN PERCENT AUTO 2 % (0-1); LYMPHOCYTES ABSOLUTE AUTO 1.08 K/mm3 (0.84-5.20); LYMPHOCYTES PERCENT AUTO 26 % (21-46); MONOCYTES ABSOLUTE AUTO 0.68 K/mm3 (0.16-1.47); MONOCYTES PERCENT AUTO 17 % (4-13); Mean Corpuscular HGB Conc 30.7 g/dL (31.5-36.5); Mean Corpuscular Volume 95 fL (80-100); Mean Platelet Volume 9.7 fL (9.1-12.4); NEUTROPHILS ABSOLUTE AUTO 2.24 K/mm3 (1.96-9.15); NEUTROPHILS PERCENT AUTO 55 % (41-73); Platelet Count 492 K/mm3 (150-400); RDW Standard Deviation 51.9 fL (35.1-46.3); Red Blood Cell Count 3.07 M/mm3 (3.80-5.20); White Blood Cell Count 4.11 K/mm3 (4.00-11.30)
[2021-05-17 03:53] LABS: Source, Urine Clean Catch
[2021-05-17 04:02] LABS: Bilirubin, Urine Neg (Neg); Blood, Urine Neg (Neg); Glucose Qualitative, Urine Neg (Neg); Ketones, Urine Neg (Neg); Leukocyte Esterase, Urine Neg (Neg); Nitrite, Urine Neg (Neg); Protein, Urine 1+ (Neg); Specific Gravity, Urine 1.015 (1.003-1.022); Urobilinogen, Urine NORM (Normal)
[2021-05-17 04:09] LABS: Appearance, Urine Clear (Clear); Color, Urine Yellow (P-Yellow)
[2021-05-17 04:28] LABS: Albumin/Globulin Ratio 0.5 (0.8-1.8); Bilirubin, Total 0.2 mg/dL (0.1-1.0); Bun/Creatinine Ratio 11.5 (12.0-20.0); Calcium, Blood 7.6 mg/dL (8.5-10.1); Creatinine, Blood 1.65 mg/dL (0.40-1.00); Globulin, Blood 3.7 g/dL (2.2-4.0); Potassium, Blood 4.1 mmol/L (3.5-5.5); Total Protein, Blood 5.7 g/dL (6.4-8.2)
--- NOTE | 2021-05-17 06:16 | NUR ---
Arrived from ER on 15L NRB mask, sats dropping down to low 80's, changed over to high flow NC. Tolerated through night. This am sats dropping down to mid 80's and unable to get back on high flow. changed over to bipap. settings 03/26 95%. tolerating well
--- NOTE | 2021-05-17 18:02 | NUR ---
SHIFT SUMMARY PT AGREED TO ALLOW THIS STUDENT TO PROVIDE CARE. PT AOX3, ANSWERS QUESTIONS APPROPRIATELY, TALKING IN FULL SENTENCES, REPORTS IMPROVMENTS IN BREATHING. PT BEGAN DAY ON BIPAP 03/26 SPO2 99%. PRIMARY RN CHANGED PT TO AIRVO 40L 80% FIO2 W/ SPO2 92%. CT NEGATIVE FOR PULMONARY EMBOLISM, BILAT PNEUMONIA NOTED. DENIES CHEST PAIN. AT THE TIME OF THIS NOTE PT IS ON AIRVO 45L 80% FIO2 SPO2 92%. LUNG SOUNDS DIMINISHED THROUGHOUT W/ COARSE CRACKLES ON LEFT LOWER LOBE. PRODUCTIVE COUGH WITH CLEAR SPUTUM. SINUS AT 82. SKIN WARM, PINK AND DRY. VITALS STABLE. NO COMPLAINTS OF PAIN. CALLED APPROPRIATELY. PT PORT LIONS BUT ABLE TO MAKE NEEDS KNOW. SBA TO BSC. FOUL ODOR TO URINE. APPETITE INCREASED THROUGHOUT DAY.
[2021-05-18 03:57] LABS: BASOPHILS ABSOLUTE AUTO 0.01 K/mm3 (0.00-0.23); BASOPHILS PERCENT AUTO 1 % (0-2); EOSINOPHILS PERCENT AUTO 0 % (0-6); Hematocrit 30.7 % (33.0-51.0); Hemoglobin 9.5 g/dL (11.5-16.0); Mean Corpuscular HGB 29.1 pg (26.0-34.0); Mean Corpuscular HGB Conc 30.9 g/dL (31.5-36.5); Mean Corpuscular Volume 94 fL (80-100); Mean Platelet Volume 9.6 fL (9.1-12.4); Platelet Count 537 K/mm3 (150-400); RDW Coefficient Variation 14.8 % (11.7-14.2); RDW Standard Deviation 50.8 fL (35.1-46.3); Red Blood Cell Count 3.27 M/mm3 (3.80-5.20)
[2021-05-18 04:08] LABS: IMMATURE GRAN ABSOLUTE AUTO 0.03 K/mm3 (0.00-0.10); IMMATURE GRAN PERCENT AUTO 1 % (0-1); LYMPHOCYTES ABSOLUTE AUTO 0.64 K/mm3 (0.84-5.20); LYMPHOCYTES PERCENT AUTO 31 % (21-46); MONOCYTES ABSOLUTE AUTO 0.09 K/mm3 (0.16-1.47); MONOCYTES PERCENT AUTO 4 % (4-13); NEUTROPHILS ABSOLUTE AUTO 1.33 K/mm3 (1.96-9.15); NEUTROPHILS PERCENT AUTO 63 % (41-73)
[2021-05-18 04:20] LABS: C-REACTIVE PROTEIN, EXT RANGE 8.74 mg/dL (0.000-0.300); Magnesium, Blood 2.7 mg/dL (1.6-2.4)
[2021-05-18 04:21] LABS: Albumin, Blood 2.1 g/dL (3.4-5.0); Albumin/Globulin Ratio 0.5 (0.8-1.8); Bilirubin, Total 0.2 mg/dL (0.1-1.0); Bun/Creatinine Ratio 17.6 (12.0-20.0); Calcium, Blood 7.7 mg/dL (8.5-10.1); Creatinine, Blood 1.76 mg/dL (0.40-1.00); Globulin, Blood 4.2 g/dL (2.2-4.0); Potassium, Blood 4.8 mmol/L (3.5-5.5); Total Protein, Blood 6.3 g/dL (6.4-8.2)
--- NOTE | 2021-05-18 17:52 | NUR ---
SHIFT NOTE PT REMAINS ON AIRVO, SETTINGS HAVE CHANGED TO 35L WITH 45% FIO2. PT A/O X3, VERY [place], SHE IS A LITTLE SLOW TO ANSWER QUESTIONS BUT ANSWERS QUESTIONS APPROPRIATELY. SPO2 HAS REMAINED >90% T/O THE DAY. PT UP TO BEDSIDE CHAIR FOR THE DAY, PILLOWS PLACED FOR COMFORT. PT SBA TO BEDSIDE COMMODE. VSS. REPORTS IMPROVEMENT OF BREATHING. NADN. OTHWERWISE NO ACUTE CHANGES THIS SHIFT.
[2021-05-19 04:07] LABS: BASOPHILS PERCENT AUTO 0 % (0-2); EOSINOPHILS PERCENT AUTO 0 % (0-6); Hematocrit 28.1 % (33.0-51.0); Hemoglobin 8.8 g/dL (11.5-16.0); IMMATURE GRAN ABSOLUTE AUTO 0.05 K/mm3 (0.00-0.10); IMMATURE GRAN PERCENT AUTO 1 % (0-1); LYMPHOCYTES ABSOLUTE AUTO 0.68 K/mm3 (0.84-5.20); LYMPHOCYTES PERCENT AUTO 14 % (21-46); MONOCYTES ABSOLUTE AUTO 0.37 K/mm3 (0.16-1.47); MONOCYTES PERCENT AUTO 8 % (4-13); Mean Corpuscular HGB 29.1 pg (26.0-34.0); Mean Corpuscular HGB Conc 31.3 g/dL (31.5-36.5); Mean Corpuscular Volume 93 fL (80-100); Mean Platelet Volume 9.8 fL (9.1-12.4); NEUTROPHILS ABSOLUTE AUTO 3.67 K/mm3 (1.96-9.15); NEUTROPHILS PERCENT AUTO 77 % (41-73); Platelet Count 564 K/mm3 (150-400); RDW Coefficient Variation 14.6 % (11.7-14.2); RDW Standard Deviation 49.7 fL (35.1-46.3); Red Blood Cell Count 3.02 M/mm3 (3.80-5.20); White Blood Cell Count 4.77 K/mm3 (4.00-11.30)
[2021-05-19 04:32] LABS: Alanine Aminotransfer (ALT/SGP 28 U/L (12-78); Albumin, Blood 2.1 g/dL (3.4-5.0); Albumin/Globulin Ratio 0.5 (0.8-1.8); Alk Phos 138 U/L (50-136); Anion Gap 6 mmol/L (6-16); Aspartate Aminotrans (AST/SGOT 45 U/L (12-37); Bilirubin, Total 0.3 mg/dL (0.1-1.0); Blood Urea Nitrogen 47 mg/dL (8-24); Bun/Creatinine Ratio 28.5 (12.0-20.0); CO2, Blood 27 mmol/L (21-32); Calcium, Blood 7.6 mg/dL (8.5-10.1); Chloride, Blood 105 mmol/L (98-108); Creatinine, Blood 1.65 mg/dL (0.40-1.00); Ferritin, Serum 239 ng/mL (8-252); Globulin, Blood 3.9 g/dL (2.2-4.0); Glomerular Filtration Rate 30 (60-); Glucose, Blood 153 mg/dL (70-99); Lactate Dehydrogenase (Ld),Bld 311 U/L (100-240); Magnesium, Blood 2.4 mg/dL (1.6-2.4); Potassium, Blood 4.5 mmol/L (3.5-5.5); Sodium, Blood 138 mmol/L (136-145); Troponin I <0.015 ng/mL (0.000-0.040)
--- NOTE | 2021-05-19 05:20 | NUR ---
SHIFT SUMMARY PATIENT ALERT AND ORIENTED X4, COOPERATIVE WITH CARE. 02 SATS 91% ON AIRVO 35L FI02 65%, TITRATED UP FROM 50% AT VERY START OF SHIFT. LUNGS COARSE AT TIMES BUT CLEARED WITH COUGHING. MODERATE TO LARGE AMOUNT OF SIERAR SPUTUM. HR SR IN THE 80s WITH PVCs. BP STABLE. PATIENT UP TO BEDSIDE COMMODE, 1 PERSON ASSIST. REPOSITIONS SELF IN BED. PATIENT SLEPT MOST THE NIGHT. CALL LIGHT IN REACH.
--- NOTE | 2021-05-19 15:48 | NUR ---
END OF SHIFT SUMMARY: PATIENT HAS BEEN AFEBRILE, DENIES CHEST PAIN, HAS INFUSED DOXYCYCLINE ONCE THIS AM, HAS BEEN ABLE TO TRANSFER TO THE BSC MULTIPLE TIMES TODAY WILL RECOMMEND PAUSING THE BOWLE CARE ITEMS TO NIGHT RN, PATIENT NEEDS SOME EXTRA FIO2 WHEN IN BED SLEEPING, SATURATES BETTER WHEN UPRIGHT IN THE CHAIR, FIO2 HAS BEEN INCREASED TO 65% AT THE BEGGINING OF SHIFT, AND NOW IS 50% WITH 35L OF FLOW, WHICH IS A DECREASE OF 5. APEPITITE HAS INCREASED, IS ALERT AND ORIENTED X 4, COOPERATIVE, FOLLOWS COMMANDS, BLOOD PRESSURE WNL, DAUGHTER WAS GIVEN AN UPDATE, HAD MULTIPLE BM'S TODAY, IS FEELING STRONGER IN HER LOWER EXTREMS, MOVES UPPER EXTREMES WELL. PATIENT SEEMS TO BE IMPROVING AT THIS TIME, WILL CONTINUE TO MONITOR UNTIL SHIFT CHANGE.
--- NOTE | 2021-05-19 23:20 | NUR ---
Assumed care of pt at 1900, a/ox4. Generalized weakness. Maintaining 88-90% on 35L/50%. LS clear upper and dim at bases. Patient has a productive wet sounding cough, but only able to suction a small amount out at a time of thick/mills sputum. SR in the 80's on tele. Hyperactive bowel tones with multiple BM's today, held bowel care meds. Will update as changes occur.
[2021-05-20 10:45] LABS: BASOPHILS PERCENT AUTO 0 % (0-2); EOSINOPHILS PERCENT AUTO 0 % (0-6); Hematocrit 28.8 % (33.0-51.0); IMMATURE GRAN ABSOLUTE AUTO 0.15 K/mm3 (0.00-0.10); IMMATURE GRAN PERCENT AUTO 3 % (0-1); LYMPHOCYTES ABSOLUTE AUTO 0.46 K/mm3 (0.84-5.20); LYMPHOCYTES PERCENT AUTO 8 % (21-46); MONOCYTES ABSOLUTE AUTO 0.42 K/mm3 (0.16-1.47); MONOCYTES PERCENT AUTO 8 % (4-13); Mean Corpuscular HGB 28.8 pg (26.0-34.0); Mean Corpuscular HGB Conc 31.3 g/dL (31.5-36.5); Mean Corpuscular Volume 92 fL (80-100); Mean Platelet Volume 9.6 fL (9.1-12.4); NEUTROPHILS ABSOLUTE AUTO 4.47 K/mm3 (1.96-9.15); NEUTROPHILS PERCENT AUTO 81 % (41-73); Platelet Count 636 K/mm3 (150-400); RDW Coefficient Variation 14.8 % (11.7-14.2); RDW Standard Deviation 49.5 fL (35.1-46.3); Red Blood Cell Count 3.12 M/mm3 (3.80-5.20)
[2021-05-20 11:07] LABS: Bun/Creatinine Ratio 31.9 (12.0-20.0); Calcium, Blood 7.6 mg/dL (8.5-10.1); Creatinine, Blood 1.63 mg/dL (0.40-1.00); Potassium, Blood 4.3 mmol/L (3.5-5.5)
--- NOTE | 2021-05-20 17:43 | NUR ---
SHIFT SUMMARY PT HAS REMAINED ALERT AND ORIENTED X 4. VITAL SIGNS STABLE, SPO2 95% VIA 8L HIGH FLOW NASAL CANNULA. PT WAS ON AIRVO FOR MAJORITY OF SHIFT BUT RESPIRATORY THERAPIST DENG HAS BEEN TITRATING PT DOWN ACCORDINGLY AND PT HAS BEEN TOLERATING WELL. PT HAS BEEN A SBA TO BEDSIDE COMMODE. POWERGLIDE IN RIGHT UPPER ARM IS SALINE LOCKED. SHE UTILIZES CALL LIGHT APPROPRIATELY. TELE MONITORING IS IN PLACE AND HR IS SINUS RYTHM 70'S PER REPORT. PT DENIED CHEST PAIN/PRESSURE T/O SHIFT. NO ACUTE CHANGES NOTED. WILL CONTINUE TO MONITOR UNTIL REPORT GIVEN.
--- NOTE | 2021-05-21 05:53 | NUR ---
PT with covid 19 continues on 8 l nc & was able to maintain sats above 90 this am when up to bsc to have bm. Tele monitor SNR 70s. Denies acute distress. PT unvaccinated for covid 19
[2021-05-21 06:07] LABS: BASOPHILS ABSOLUTE AUTO 0.01 K/mm3 (0.00-0.23); BASOPHILS PERCENT AUTO 0 % (0-2); EOSINOPHILS PERCENT AUTO 0 % (0-6); Hematocrit 27.1 % (33.0-51.0); Hemoglobin 8.8 g/dL (11.5-16.0); IMMATURE GRAN ABSOLUTE AUTO 0.24 K/mm3 (0.00-0.10); IMMATURE GRAN PERCENT AUTO 5 % (0-1); LYMPHOCYTES ABSOLUTE AUTO 0.38 K/mm3 (0.84-5.20); LYMPHOCYTES PERCENT AUTO 8 % (21-46); MONOCYTES ABSOLUTE AUTO 0.29 K/mm3 (0.16-1.47); MONOCYTES PERCENT AUTO 6 % (4-13); Mean Corpuscular HGB 29.5 pg (26.0-34.0); Mean Corpuscular HGB Conc 32.5 g/dL (31.5-36.5); Mean Corpuscular Volume 91 fL (80-100); Mean Platelet Volume 10.3 fL (9.1-12.4); NEUTROPHILS ABSOLUTE AUTO 3.59 K/mm3 (1.96-9.15); NEUTROPHILS PERCENT AUTO 80 % (41-73); Platelet Count 582 K/mm3 (150-400); RDW Coefficient Variation 14.7 % (11.7-14.2); RDW Standard Deviation 48.7 fL (35.1-46.3); Red Blood Cell Count 2.98 M/mm3 (3.80-5.20); White Blood Cell Count 4.51 K/mm3 (4.00-11.30)
[2021-05-21 06:36] LABS: BASOPHILS PERCENT MAN 0 % (0-2); EOSINOPHILS PERCENT MAN 0 % (0-6); LYMPHOCYTES ABSOLUTE MAN 0.49 K/mm3 (0.84-5.20); LYMPHOCYTES PERCENT MAN 11 % (21-46); MONOCYTES ABSOLUTE MAN 0.31 K/mm3 (0.16-1.47); MONOCYTES PERCENT MAN 7 % (4-13); MYELOCYTE ABSOLUTE MAN 0.09 K/mm3 (0.00-0.00); MYELOCYTE PERCENT MAN 2 % (0-0); SEG NEUTROPHILS PERCENT MAN 80 % (41-73); TOTAL CELLS COUNTED 100
[2021-05-21 07:04] LABS: Bun/Creatinine Ratio 33.5 (12.0-20.0); C-REACTIVE PROTEIN, EXT RANGE 1.51 mg/dL (0.000-0.300); Creatinine, Blood 1.58 mg/dL (0.40-1.00); Potassium, Blood 4.9 mmol/L (3.5-5.5)
--- NOTE | 2021-05-21 18:19 | NUR ---
SHIFT SUMMARY PT A&Ox4; CALM AND COOPERATIVE WITH CARE. PT RESTING IN BED DURING SHIFT. UP TO BSC WITH 1 PERSON ASSIST. PT DENIES PAIN, CHEST PAIN, NASUEA AND DIZZINESS. SOB WITH EXERTION, ON 8L O2 VIA NC AT REST, TITRATED TO 7L O2 VIA NC DURING SHIFT. INCREASED 02 TO 10L O2 WITH ACTIVITY. PT RECEIVING IV ANTIBIOTICS AND STEROIDS. VSS. NO OTHER ACUTE CHANGES NOTED. WILL CONTINUE TO MONITOR UNITL REPORT GIVEN TO ONCOMING RN.
--- NOTE | 2021-05-21 19:45 | NUR ---
RECEIVED REPORT AND ASSUMED CARE OF PT. SHE IS LYING IN BED, NC IN PLACE, SATS MAINTAINING ABOVE 90% ON 5 LPM. SHE IS RESTING QUIETLY WITH HER EYES CLOSED AND EVEN RESPIRATIONS. ELZBIETA.
--- NOTE | 2021-05-22 05:52 | NUR ---
SHIFT SUMMARY: MARGOT IS A&OX4. VSS, MAINTAINING SATS ON 5-7 L OF 02 VIA HI-COLLETTE NASAL CANNULA. SHE DOES DESATURATE ON EXERTION, REQUIRING AN INCREASE OF O2 TO MAINTAIN SATS AND IS ABLE TO RECOVER WITHIN A FEW MINUTES, AND IS UTILIZING THE YANKER INDEPENDENTLY. SHE IS TOLERATING PO INTAKE WELL, A STANDBY ASSIST TO THE BEDSIDE COMMODE, AND THE POWERGLIDE TO THE RIGHT UPPER ARM IS PATENT, HOWEVER UNABLE TO DRAW LABS FROM IT THIS AM. ATTENDS IN PLACE, NO EPISODES OF INCONTINENCE THIS SHIFT, AND SHE DOES USE THE CALL LIGHT APPROPRIATELY. SHE IS RECLINING IN BED WITH THE CALL LIGHT IN REACH. WILL REPORT TO DAY SHIFT RN.
[2021-05-22 06:59] LABS: Hematocrit 27.9 % (33.0-51.0); Hemoglobin 8.5 g/dL (11.5-16.0); Mean Corpuscular HGB Conc 30.5 g/dL (31.5-36.5); Mean Corpuscular Volume 92 fL (80-100); Mean Platelet Volume 9.8 fL (9.1-12.4); Platelet Count 598 K/mm3 (150-400); RDW Coefficient Variation 14.7 % (11.7-14.2); RDW Standard Deviation 49.1 fL (35.1-46.3); Red Blood Cell Count 3.04 M/mm3 (3.80-5.20); White Blood Cell Count 4.49 K/mm3 (4.00-11.30)
[2021-05-22 07:15] LABS: C-REACTIVE PROTEIN, EXT RANGE 1.08 mg/dL (0.000-0.300); Magnesium, Blood 2.8 mg/dL (1.6-2.4)
[2021-05-22 07:16] LABS: Albumin, Blood 2.2 g/dL (3.4-5.0); Albumin/Globulin Ratio 0.6 (0.8-1.8); Bilirubin, Total 0.3 mg/dL (0.1-1.0); Bun/Creatinine Ratio 34.2 (12.0-20.0); Calcium, Blood 7.3 mg/dL (8.5-10.1); Creatinine, Blood 1.46 mg/dL (0.40-1.00); Globulin, Blood 3.4 g/dL (2.2-4.0); Phosphorus, Blood 3.6 mg/dL (2.5-4.9); Potassium, Blood 4.7 mmol/L (3.5-5.5); Total Protein, Blood 5.6 g/dL (6.4-8.2)
[2021-05-22 07:23] LABS: BAND PERCENT MAN 1 % (0-8); BASOPHILS PERCENT MAN 0 % (0-2); EOSINOPHILS ABSOLUTE MAN 0.04 K/mm3 (0.00-0.68); EOSINOPHILS PERCENT MAN 1 % (0-6); LYMPHOCYTES ABSOLUTE MAN 0.44 K/mm3 (0.84-5.20); LYMPHOCYTES PERCENT MAN 10 % (21-46); METAMYELOCYTE ABSOLUTE MAN 0.04 K/mm3 (0.00-0.00); METAMYELOCYTE PERCENT MAN 1 % (0-0); MONOCYTES ABSOLUTE MAN 0.31 K/mm3 (0.16-1.47); MONOCYTES PERCENT MAN 7 % (4-13); MYELOCYTE ABSOLUTE MAN 0.13 K/mm3 (0.00-0.00); MYELOCYTE PERCENT MAN 3 % (0-0); SEG NEUTROPHILS PERCENT MAN 77 % (41-73); TOTAL CELLS COUNTED 100
--- NOTE | 2021-05-22 17:07 | NUR ---
SHIFT SUMMARY PT A&Ox4; CALM AND COOPERATIVE [facility]. PT RESTING IN BED DURING SHIFT. UP TO BSC WITH SBA. PT DENIES PAIN, CHEST PAIN, NAUSEA AND DIZZINESS T/O SHIFT. PT REPORTS SOB WITH EXERTION, PT ON 8L O2 VIA NC, TITRATED TO 6L O2 VIA NC T/O SHIFT, INCREASED 2L WITH ACTIVITY, PT DESATURATES 84-88% BUT RECOVERS QUICKLY. PT RECEIVING IV ANTIBIOTICS AND STEROIDS. VSS. NO OTHER ACUTE CHANGES NOTED. WILL CONTINUE TO MONITOR UNITL REPORT GIVEN TO ONCOMING RN.
--- NOTE | 2021-05-22 21:25 | NUR ---
ASSUMED CARE OF PATIENT AT APPROXIMATELY 1900 FROM MARK Wen RN. PATIENT ALERT AND ORIENTED X4; HARD OF HEARING DUE TO AIR FILTER RUNNING IN ROOM. ISOLATION FOR COVID; PATIENT DENIES PAIN, NUMBESS, TINGLING, DIZZINESS OR NAUSEA. PATIENT REPORTS HER DRESSING ON HER FIDELINA PG ITCHES BUT NO REDNESS OR SKIN BREAKDOWN NOTED; ICE PUT OVER A WASHCLOTH HELPED ITCHING. MEDICAL NO TELE STATUS; OXYGEN SATURATION ABOVE 90% ON 6LPM VIA HF NC; EXERTION W/ AMBUATION AND INCREASED O2 NEEDS. PG FIDELINA INFUSING IV ABX AND TKO NS.
[2021-05-23 06:16] LABS: Hematocrit 25.8 % (33.0-51.0); Hemoglobin 8.2 g/dL (11.5-16.0); Mean Corpuscular HGB 28.7 pg (26.0-34.0); Mean Corpuscular HGB Conc 31.8 g/dL (31.5-36.5); Mean Corpuscular Volume 90 fL (80-100); Mean Platelet Volume 9.9 fL (9.1-12.4); Platelet Count 640 K/mm3 (150-400); RDW Coefficient Variation 14.6 % (11.7-14.2); RDW Standard Deviation 48.5 fL (35.1-46.3); Red Blood Cell Count 2.86 M/mm3 (3.80-5.20); White Blood Cell Count 5.48 K/mm3 (4.00-11.30)
[2021-05-23 06:29] LABS: Albumin, Blood 2.1 g/dL (3.4-5.0); Anion Gap 7 mmol/L (6-16); Blood Urea Nitrogen 54 mg/dL (8-24); Bun/Creatinine Ratio 36.7 (12.0-20.0); CO2, Blood 24 mmol/L (21-32); Calcium, Blood 7.5 mg/dL (8.5-10.1); Chloride, Blood 110 mmol/L (98-108); Creatinine, Blood 1.47 mg/dL (0.40-1.00); Glomerular Filtration Rate 34 (60-); Glucose, Blood 155 mg/dL (70-99); Phosphorus, Blood 3.6 mg/dL (2.5-4.9); Potassium, Blood 4.9 mmol/L (3.5-5.5); Sodium, Blood 141 mmol/L (136-145)
[2021-05-23 06:42] LABS: BAND PERCENT MAN 2 % (0-8); BASOPHILS PERCENT MAN 0 % (0-2); EOSINOPHILS PERCENT MAN 0 % (0-6); LYMPHOCYTES ABSOLUTE MAN 0.43 K/mm3 (0.84-5.20); LYMPHOCYTES PERCENT MAN 8 % (21-46); METAMYELOCYTE ABSOLUTE MAN 0.05 K/mm3 (0.00-0.00); METAMYELOCYTE PERCENT MAN 1 % (0-0); MONOCYTES ABSOLUTE MAN 0.05 K/mm3 (0.16-1.47); MONOCYTES PERCENT MAN 1 % (4-13); MYELOCYTE ABSOLUTE MAN 0.05 K/mm3 (0.00-0.00); MYELOCYTE PERCENT MAN 1 % (0-0); NEUTROPHILS ABSOLUTE MAN 4.87 K/mm3 (1.96-9.15); SEG NEUTROPHILS PERCENT MAN 87 % (41-73); TOTAL CELLS COUNTED 100
--- NOTE | 2021-05-23 13:26 | NUR ---
Spiritual care visit conducted. Patient is lying in bed and alert. Pt tells me about her medical history, recent events that led to her hospitalization and the plan of care moving forward. Patient then talks at length about her Faith evette, her love for God, her family and her nondenominational. Pt shares about her emotional ups and downs but states that over all her evette and the support of loved ones has kept her strong. I normalize her experience and provide recitation of scripture, pastoral financial health counselor and prayer. Patient responds well and shows signs of being encouraged in her evette.
--- NOTE | 2021-05-23 17:21 | NUR ---
SHIFT SUMMARY PT AOx4; CALM AND COOPEATIVE WITH CARE. PT RESTING IN BED FOR MAJOIRTY OF SHIFT. UP WITH SBA TO CHAIR FOR MEALS AND BSC. PT ON 6L O2 VIA NC AT REST, TITRATED TO 5L O2 VIA NC, PT DESATURATING WITH COUGHING AND WALKING, TITRATED UP TO 7L AT REST. WITH ACTIVITY INCREASE PT 2L, APPEARS TO TOLERATE WELL. PT REFUSED MUCINEX THIS AM, EDCUATED PT ON USE OF MEDICATIONS. PT DENIES PAIN, CHEST PAIN, NASUEA AND DIZZINESS. PT RECEIVING IV ANTIBIOTICS AND STEROIDS. VSS. NO OTHER ACUTE CHANGES NOTED DUIRNG SHIFT. WILL CONTINUE TO MONITOR UNITL REPORT GIVEN TO ONCOMING RN.
--- NOTE | 2021-05-23 20:34 | NUR ---
ASSUMED CARE OF PATIENT AT APPROXIMATELY 1905 FROM MARK Wen RN. PATIENT ALERT AND ORIENTED X4; HARD OF HEARING DUE TO AIR FILTER RUNNING IN ROOM AND PATIENT REPORTS UNABLE TO WEAR HEARING AIDS TO OXYGEN TUBING. ISOLATION FOR COVID; PATIENT DENIES PAIN, NUMBESS, TINGLING, DIZZINESS OR NAUSEA. MEDICAL NO TELE STATUS; OXYGEN SATURATION ABOVE 90% ON 8LPM VIA HF NC; EXERTION W/ AMBUATION AND INCREASED O2 NEEDS. PG FIDELINA INFUSING IV ABX AND TKO NS.
[2021-05-24 05:56] LABS: Hematocrit 27.1 % (33.0-51.0); Hemoglobin 8.7 g/dL (11.5-16.0); Mean Corpuscular HGB 28.9 pg (26.0-34.0); Mean Corpuscular HGB Conc 32.1 g/dL (31.5-36.5); Mean Corpuscular Volume 90 fL (80-100); Platelet Count 690 K/mm3 (150-400); RDW Coefficient Variation 14.6 % (11.7-14.2); RDW Standard Deviation 48.1 fL (35.1-46.3); Red Blood Cell Count 3.01 M/mm3 (3.80-5.20); White Blood Cell Count 7.67 K/mm3 (4.00-11.30)
[2021-05-24 06:18] LABS: BAND PERCENT MAN 3 % (0-8); BASOPHILS PERCENT MAN 0 % (0-2); EOSINOPHILS PERCENT MAN 0 % (0-6); LYMPHOCYTES ABSOLUTE MAN 0.07 K/mm3 (0.84-5.20); LYMPHOCYTES PERCENT MAN 1 % (21-46); METAMYELOCYTE ABSOLUTE MAN 0.07 K/mm3 (0.00-0.00); METAMYELOCYTE PERCENT MAN 1 % (0-0); MONOCYTES ABSOLUTE MAN 0.07 K/mm3 (0.16-1.47); MONOCYTES PERCENT MAN 1 % (4-13); MYELOCYTE ABSOLUTE MAN 0.07 K/mm3 (0.00-0.00); MYELOCYTE PERCENT MAN 1 % (0-0); NEUTROPHILS ABSOLUTE MAN 7.36 K/mm3 (1.96-9.15); SEG NEUTROPHILS PERCENT MAN 93 % (41-73); TOTAL CELLS COUNTED 100
[2021-05-24 06:24] LABS: Calcium, Blood 7.7 mg/dL (8.5-10.1); Creatinine, Blood 1.39 mg/dL (0.40-1.00); Potassium, Blood 5.1 mmol/L (3.5-5.5)
--- NOTE | 2021-05-24 06:24 | NUR ---
PATIENT SLEPT ABOUT SEVEN HOURS LAST NIGHT; NO ACUTE CHANGES. NEEDING UP TO 10 LPM W/ AMBULATION.
--- NOTE | 2021-05-24 10:57 | NUR ---
PT ARRIVED TO THE MEDICAL FLOOR VIA WHEELCHAIR FROM PCU. PT IS A/OX3 PLEASANT AND COOPERATIVE. THE PT IS UP WITH MINIMAL ASSIST ON O2 @ 8L/MIN. PT DENIED PAIN. PT ORIENTED TO THE ROOM LAYOUT AND CALL SYSTEM. PT BREATH SOUND HAVE FINE CRACKLES HEARD PRIMARILY ON THE LEFT SIDE. CALL LIGHT IN REACH WILL CONTINUE TO MONITOR AND ASSESS FOR CHANGES
--- NOTE | 2021-05-24 17:00 | NUR ---
PT IS A/OX3, PLEASANT AND COOPERATIVE. THE PT IS MINIMAL ASSIST UP TO THE CHAIR AND BSC. PT IS VERY SOB WITH MINIMAL ACTIVITY. AT THIS TIME PT IS AT REST, O2 TITRATED DOWN TO 6L/MIN VIA HIGH [place]TT[place] NC O2 SAT STEADY AT 94%. PT WAS INSTRUCTED ON IS USE AND HAS BEEN USEING IT APPROPRIATLY. PT IS ON [employer] BIOX. CALL LIGHT IN REACH. WILL CONTINUE TO MONITOR AND ASSESS FOR CHANGES
--- NOTE | 2021-05-25 03:25 | NUR ---
SHIFT SUMMARY NO ACUTE CHANGES TO REPORT THIS SHIFT. PT STILL GETS VERY WINDED WITH EXERTION AND DESATS IN THE 80'S WITH AMBULATION AND EXERTION. PT O2 WAS DECREASED TO 6L BUT PT O2 SATS DID NOT RECOVER WHEN RETURNING BACK TO BED AND SHE WAS SUSTAINING SATS IN THE LOW 80'S. SO SHE WAS INCREASED BACK TO 8L DURING THE NIGHT. PT IS NOW MAINTAINING SATS IN THE MID TO UPPER 90'S AND IS ABLE TO TOLERATE AMBULATION TO BSC. IV ANTIBIOTICS PER ORDERS. VITALS STABLE. PT SLEPT FOR MOST OF THE SHIFT, DENYING PAIN OR NEEDS. BED IN LOWEST POSITION, CALL LIGHT WITHIN REACH.
[2021-05-25 05:15] LABS: BASOPHILS ABSOLUTE AUTO 0.01 K/mm3 (0.00-0.23); BASOPHILS PERCENT AUTO 0 % (0-2); EOSINOPHILS PERCENT AUTO 0 % (0-6); Hematocrit 25.1 % (33.0-51.0); Hemoglobin 7.8 g/dL (11.5-16.0); IMMATURE GRAN ABSOLUTE AUTO 0.46 K/mm3 (0.00-0.10); IMMATURE GRAN PERCENT AUTO 7 % (0-1); LYMPHOCYTES PERCENT AUTO 4 % (21-46); MONOCYTES ABSOLUTE AUTO 0.27 K/mm3 (0.16-1.47); MONOCYTES PERCENT AUTO 4 % (4-13); Mean Corpuscular HGB 28.6 pg (26.0-34.0); Mean Corpuscular HGB Conc 31.1 g/dL (31.5-36.5); Mean Corpuscular Volume 92 fL (80-100); Mean Platelet Volume 10.4 fL (9.1-12.4); NEUTROPHILS ABSOLUTE AUTO 6.03 K/mm3 (1.96-9.15); NEUTROPHILS PERCENT AUTO 85 % (41-73); Platelet Count 580 K/mm3 (150-400); RDW Coefficient Variation 14.8 % (11.7-14.2); RDW Standard Deviation 49.9 fL (35.1-46.3); Red Blood Cell Count 2.73 M/mm3 (3.80-5.20); White Blood Cell Count 7.07 K/mm3 (4.00-11.30)
[2021-05-25 05:29] LABS: Bun/Creatinine Ratio 35.5 (12.0-20.0); Calcium, Blood 7.4 mg/dL (8.5-10.1); Creatinine, Blood 1.38 mg/dL (0.40-1.00)
--- NOTE | 2021-05-25 10:50 | NUR ---
Spiritual care visit conducted. Patient is pleasant and in no spiritual distress. She does, however, benefit significantly form discussion centered around God, her family and recalling the successful moments in life. Pt brightens up her countenence, sits up more straight in bed and smiles more as a result of the conversation. I highlight pt's courage and evette, the love of her family and the gains that she has made medically. I listen empathically and provide prayer. I will continue to be available to pt and family.
--- NOTE | 2021-05-25 14:42 | NUR ---
PT WAS 100% ON 8L , THIS NURSE TITRATED PT TO 5L AND IS AT 94-96% AT THIS TIME WHILE SITTING IN BED. PT CONTINUES TO DESAT WITH EXERTION THOUGH.
--- NOTE | 2021-05-25 16:54 | NUR ---
shift summary PT AXO, PLEASANT AND COOPERATIVE WITH CARE. VSS. PT DENIES PAIN AND N/V. PT 97% ON 5L AT THIS TIME. PT DESATS WITH EXERTION THOUGH AND DOES NEED O2 INCREASED WITH MOVEMENT. UP WITH 1 ASSIST TO BSC. PHYSICAL THERAPY WORKED WITH PATIENT, SEE NEW ORDER. POWERGLIDE PATENT AND SALINE LOCKED, CAPS CHANGED THIS SHIFT. BED IN LOW POSITION, CALL LIGHT WITHIN REACH.
--- NOTE | 2021-05-26 04:19 | NUR ---
PT IS ALERT AND ORIENTED X4. NO C/O PAIN. HAS A COUGH WITH SPUTUM. VOIDING; USING THE COMMODE WITH ONE ASSISTS. PULSE CONT OXY OUTSIDE OF THE ROOM. 5 LITERS OF O2; SATS DROPS WHEN PT IS UP MOVING AROUND.
[2021-05-26 05:14] LABS: Hematocrit 26.4 % (33.0-51.0); Hemoglobin 8.3 g/dL (11.5-16.0)
[2021-05-26 05:37] LABS: Albumin, Blood 2.3 g/dL (3.4-5.0); Anion Gap 6 mmol/L (6-16); Blood Urea Nitrogen 51 mg/dL (8-24); Bun/Creatinine Ratio 38.6 (12.0-20.0); CO2, Blood 23 mmol/L (21-32); Calcium, Blood 7.7 mg/dL (8.5-10.1); Chloride, Blood 112 mmol/L (98-108); Creatinine, Blood 1.32 mg/dL (0.40-1.00); Glomerular Filtration Rate 39 (60-); Glucose, Blood 147 mg/dL (70-99); Phosphorus, Blood 3.6 mg/dL (2.5-4.9); Potassium, Blood 5.2 mmol/L (3.5-5.5); Sodium, Blood 141 mmol/L (136-145)
--- NOTE | 2021-05-26 08:00 | NUR ---
pt laying in bed awake watching tv, a/ox3, pleasant and cooperative with care, follows commands well, denies pain, reports breathing without diff, her sats are 98 to 99% on 5 liters, titrated her to 4 liters via n/c, sats remain 97 98, will continue to titrate, lungs are clear in upper schafer, fine crackles in left base, no cough noted at this time, hrr, loud murmur noted, trace edema noted to b/l le, ppp+1, cap refill <3sec, vs stable, afebrile, power glide to manda, flushes well but does not draw, btx4, abd flat soft nontender, voids without diff bedside cammode, skin c/w/d, emeli, one assist, just to manage lines, liban, call light in reach.
[2021-05-26] MEDS ORDERED: ASCO500 PO (16:29)
[2021-05-26] MEDS ORDERED: Acetaminophen325 M1 PO (16:29)
[2021-05-26] MEDS ORDERED: TUMS500 MG PO (16:29)
[2021-05-26] MEDS ORDERED: DECADRON6 M1 PO (16:30)
[2021-05-26] MEDS ORDERED: FAMO20 PO (16:30)
--- NOTE | 2021-05-26 18:47 | NUR ---
pt has been discharged to home, went over instructions with her daughter on the phone and with the pt. she verbalized understanding, power glide removed intact, left via wheelchair with all belongings. new medication was called into [facility].
== END 2021-05-26 19:00 | disposition home health service (06) | DRG 871 ==
LOC: ER 17:27 → PCU 20:48 → MEDS 05-24 10:36
PROVIDERS: Emergency Medicine; Family Medicine; Internal Medicine; ADMIT Internal Medicine
PROC: XW0DXM6 Introduction of Baricitinib into Mouth and Pharynx, External Approach, New Technology Group 6 (ICD-10-PCS; principal; 2021-05-16)
PROC: 3E0DX3Z Introduction of Anti-inflammatory into Mouth and Pharynx, External Approach (ICD-10-PCS; 2021-05-16)
PROC: 5A0945A Assistance with Respiratory Ventilation, 24-96 Consecutive Hours, High Flow/Velocity Cannula (ICD-10-PCS; 2021-05-16)
PROC: 8E0ZXY6 Isolation (ICD-10-PCS; 2021-05-16)
DX: A41.89 Other specified sepsis (principal); J96.01 Acute respiratory failure with hypoxia; J12.82 Pneumonia due to coronavirus disease 2019; J13 Pneumonia due to Streptococcus pneumoniae; N17.9 Acute kidney failure, unspecified; N18.4 Chronic kidney disease, stage 4 (severe); R65.20 Severe sepsis without septic shock; I12.9 Hypertensive chronic kidney disease with stage 1 through stage 4 chronic kidney disease, or unspecified chronic kidney disease; E78.5 Hyperlipidemia, unspecified; M81.0 Age-related osteoporosis without current pathological fracture; G47.00 Insomnia, unspecified; Z96.649 Presence of unspecified artificial hip joint; Z98.890 Other specified postprocedural states; Z79.899 Other long term (current) drug therapy; Z88.1 Allergy status to other antibiotic agents; Z88.8 Allergy status to other drugs, medicaments and biological substances; I08.3 Combined rheumatic disorders of mitral, aortic and tricuspid valves
CPT/HCPCS: 0241U; 36415; 71045; 71260; 80048; 80053; 80069; 82728; 82803; 83615; 83735; 83880; 84100; 84145; 84484; 85014; 85018; 85025; 85379; 86140; 90686; 93005; 93010; 94640; 94660; 94761; 94762; 96374; 96375; 97110; 97116; 97162; 99285-25; A9270; C1751; C9399; G0008; J1644; J1940; J2405; J2930; J7050; Q9967

== ENCOUNTER → 2024-01-21 | Outpatient (CLI) | payer MEDICARE, OTHER ==
[~2024-01-21] MED LIST changes: +ASCO500 PO; +Acetaminophen325 M1 PO; +DECADRON6 M1 PO; +FAMO20 PO; +TUMS500 MG PO
[2024-01-21 15:26] LABS: Source, Urine Clean Catch
[2024-01-21 17:05] LABS: Appearance, Urine Clear (Clear); Bilirubin, Urine Neg (Neg); Blood, Urine Neg (Neg); Color, Urine Yellow (P-Yellow); Glucose Qualitative, Urine Neg (Neg); Ketones, Urine Neg (Neg); Leukocyte Esterase, Urine 1+ (Neg); Nitrite, Urine Neg (Neg); Protein, Urine 2+ (Neg); Specific Gravity, Urine 1.015 (1.003-1.022); Urobilinogen, Urine NORM (Normal)
[2024-01-21 17:17] LABS: Bacteria Mod /hpf; Red Blood Cells, Urine 0-2 /hpf (0-2); Squamous Epithelial Cells Few /hpf (Few)
== END ==
LOC: LAB 13:30 → LAB SHORT 13:30
PROVIDERS: Nurse Practitioner Family
DX: N39.41 Urge incontinence (principal)
CPT/HCPCS: 81001; 87086